=== PATIENT | female | born 1960 | race African-American/Black ===

== ENCOUNTER 2018-12-20 22:28 | Emergency (ER) | payer MEDICAID ==
[~2018-12-20] VITALS: Ht 165.1 cm; Wt 76.2 kg
--- NOTE | 2018-12-20 22:44 | NUR ---
ED Nurse Note: pt walked in c/o left eye redness and "doesn't look good" x 3wks and using saline but no improvement. Pt also c/o back pain. Pt is AO x 4times, VSS, on room air no distress. MOHAN seen Pt at bedside.
[2018-12-20 22:46] VITALS: BP 128/80
[2018-12-20] MEDS ORDERED: CLEAR EYES REDN30 M1 LEFT EYE (22:57)
[2018-12-20] MEDS ORDERED: GENTAK5 ML LEFT EYE (22:57)
[2018-12-20 23:00] VITALS: BP 128/80
--- NOTE | 2018-12-20 23:00 | NUR ---
ER DISCHARGE NOTE: Patient is cleared to be discharged per ERMD, pt is aox4, on room air, with stable vital signs. pt was given dc and prescription instructions, pt was able to verbalize understanding, pt id band removed without complications. pt is able to ambulate with steady gait. pt took all belongings.
--- NOTE | 2018-12-20 23:10 | Emergency Room Report ---
History of Present Illness General Chief Complaint: Eye Problems Source: Patient Present Illness HPI Patient presents with complaints of left eye irritation She feels that in the bus several days ago some dust got into her eye She complained of some itching and irritation to it Denies any visual changes acutely changed Denies any pain to the eye Denies any neck pain or photophobia Denies any sore throat Allergies: Coded Allergies: No Known Allergies (Unverified , 12/20/18) Patient History Past Medical History: see triage record Pertinent Family History: none Now: No : 1 Para: 0 Reviewed Nursing Documentation: PMH: Agreed; PSxH: Agreed Nursing Documentation-PMH Past Medical History: No Stated History Review of Systems All Other Systems: negative except mentioned in HPI Physical Exam Vital Signs Date Time Temp Pulse Resp B/P (MAP) Pulse Ox O2 Delivery O2 Flow Rate FiO2 12/20/18 22:33 97.9 72 18 131/86 (101) 97 Room Air Sp02 EP Interpretation: reviewed, normal General Appearance: well appearing, no apparent distress Head: normocephalic, atraumatic Eyes: left eye other - Mild conjunctival irritation no obvious proptosis; bilateral eye PERRL, bilateral eye EOMI ENT: normal pharynx Neck: supple Respiratory: lungs clear Cardiovascular #1: regular rate, rhythm Gastrointestinal: non tender, soft Genitourinary: no CVA tenderness Musculoskeletal: normal inspection Neurologic: alert, oriented x3, responsive Psychiatric: mood/affect normal Skin: normal color, no rash Lymphatic: no adenopathy Medical Decision Making Diagnostic Impression: Primary Impression: conjunctivitis ER Course Patient shows evidence of likely allergic conjunctivitis to the left eye Given some of the erythema and the duration possible infectious pathology also entertained patient also placed on antibiotic drops and will have close outpatient follow-up Last Vital Signs Date Time Temp Pulse Resp B/P (MAP) Pulse Ox O2 Delivery O2 Flow Rate FiO2 12/20/18 22:46 98.2 87 18 128/80 99 Room Air Status: unchanged Disposition: HOME, SELF-CARE Condition: Stable Scripts Naphazoline Hcl/Glycerin (CLEAR EYES REDNESS RELIEF DROP) 30 Ml Drops 2 DROP LEFT EYE BID for 7 Days, ML Prov: Juancarlos Samuels DO 12/20/18 Gentamicin Sulfate* (GENTAK*) 5 Ml Drops 1 DROP LEFT EYE Q12HR for 7 Days, #1 DROP 0 Refills Prov: Juancarlos Samuels DO 12/20/18 Referrals: [facility]. [facility] Patient Instructions: Bacterial Conjunctivitis, Allergic Conjunctivitis, Easy- to-Read Additional Instructions: Patient is provided with the discharge instructions notified to follow up with primary doctor in the next 2-3 days otherwise return to the er with any worsening symptoms. Please note that this report is being documented using [employer] technology. This can lead to erroneous entry secondary to incorrect interpretation by the dictating instrument. Juancarlos Samuels DO December 20, 2018 23:10
== END 2018-12-20 23:30 | disposition home or self-care (01) ==
LOC: EMR 22:50
DX: H10.9 Unspecified conjunctivitis (principal)
CPT/HCPCS: 99282

== ENCOUNTER 2019-01-01 15:21 | Emergency (ER) | payer MEDICAID ==
[~2019-01-01] VITALS: Ht 165.1 cm; Wt 81.6 kg
[~2019-01-01 15:21] MED LIST: CLEAR EYES REDN30 M1 LEFT EYE; GENTAK5 ML LEFT EYE
[2019-01-01 15:49] VITALS: BP 100/68
--- NOTE | 2019-01-01 15:50 | NUR ---
ED Nurse Note: Patient walked into ED c/o multiple problems, at first she stated that she was having left eye problems, the left eye has a slight redness however no drainage, patient also reports of having knee and toe pain, patient asked for a valium from the MD. patient is alert and oriented x4, ambulatory with a steady gait, vSS
--- NOTE | 2019-01-01 16:00 | Emergency Room Report ---
History of Present Illness General Chief Complaint: Eye Problems Source: Patient Present Illness HPI Patient presents with several different complaints initially complaining of some irritation to her left eye While on the examination bed patient also complains of having a callus in her right toe Reports that she has been off and on with her psychotropic medication does not feel that she necessarily needs them however felt that the Valium could be beneficial for her and requesting a prescription Denies any homicidal or suicidal thoughts denies any chest pain denies any back or flank pain denies any recent trauma Allergies: Coded Allergies: No Known Allergies (Unverified , 12/20/18) Patient History Past Medical History: see triage record Pertinent Family History: none Now: No Reviewed Nursing Documentation: PMH: Agreed; PSxH: Agreed Nursing Documentation-PMH Past Medical History: No History, Except For History Of Psychiatric Problem: Yes - Bipolar, Depression Review of Systems All Other Systems: negative except mentioned in HPI Physical Exam Vital Signs Date Time Temp Pulse Resp B/P (MAP) Pulse Ox O2 Delivery O2 Flow Rate FiO2 01/01/19 15:38 98.1 93 20 100/68 (79) 95 Room Air Sp02 EP Interpretation: reviewed, normal General Appearance: well appearing, no apparent distress Head: normocephalic, atraumatic Eyes: bilateral eye PERRL, bilateral eye EOMI ENT: hearing grossly normal, normal pharynx, TMs + canals normal, uvula midline Neck: full range of motion, supple, no meningismus, no bony tend Respiratory: lungs clear, normal breath sounds, no rhonchi, no respiratory distress, no retraction, no accessory muscle use Cardiovascular #1: normal peripheral pulses, regular rate, rhythm, no edema, no gallop, no JVD, no murmur Gastrointestinal: normal bowel sounds, non tender, soft, no mass, no organomegaly, non-distended, no guarding, no hernia, no pulsatile mass, no rebound Genitourinary: no CVA tenderness Musculoskeletal: normal inspection Neurologic: oriented x3, responsive, light industrial supervisor III-XII nml as tested, motor strength/ tone normal, sensory intact Psychiatric: mood/affect normal Skin: other - Patient's feet were not further examined Lymphatic: normal inspection, no adenopathy Medical Decision Making Diagnostic Impression: Primary Impression: allergic conjuctivitis Additional Impression: Plantar callosity ER Course Patient has benign medical evaluation I feel that patient will benefit from appropriate outpatient psychiatric consultation I did discuss with her that I did not feel initial prescription of Valium was appropriate through the emergency room Patient understands this and was provided with appropriate outpatient referrals Patient does not meet any further criteria for psychiatric evaluation emergently and is stable for close follow-up Last Vital Signs Date Time Temp Pulse Resp B/P (MAP) Pulse Ox O2 Delivery O2 Flow Rate FiO2 01/01/19 15:49 98.1 85 20 100/68 95 Room Air Status: unchanged Disposition: HOME, SELF-CARE Condition: Stable Referrals: [facility]. [facility] Patient Instructions: Bunion (Hallux Valgus), Allergic Conjunctivitis, Easy-to- Read Additional Instructions: Patient is provided with the discharge instructions notified to follow up with primary doctor in the next 2-3 days otherwise return to the er with any worsening symptoms. Please note that this report is being documented using [employer] technology. This can lead to erroneous entry secondary to incorrect interpretation by the dictating instrument. Juancarlos Samuels DO Jan 01, 2019 16:00
--- NOTE | 2019-01-01 16:03 | NUR ---
ER DISCHARGE NOTE: Patient is cleared to be discharged per ERMD, pt is aox4, on room air, with stable vital signs. pt refused to sign discharge paperwork and repeatedly asked for pain medicine, patient was given a list of clinics as well as referrals.
[2019-01-01 16:52] VITALS: BP 100/68
== END 2019-01-01 16:50 | disposition home or self-care (01) ==
LOC: EMR 16:43
DX: H10.12 Acute atopic conjunctivitis, left eye (principal); L84 Corns and callosities; F31.9 Bipolar disorder, unspecified
CPT/HCPCS: 99281

== ENCOUNTER 2019-09-25 23:18 | Emergency (ER) | payer MEDICAID ==
[~2019-09-25] VITALS: Ht 165.1 cm; Wt 90.7 kg
[~2019-09-25 23:18] MED LIST changes: +POLYTRIM OP SOL10 ML OPHTHALM
--- NOTE | 2019-09-25 23:30 | NUR ---
ED Nurse Note: Pt walked into ED from home for c/o toe pain. Pt states she has sharp toe pain in her R 4th toe for the past two weeks. Pt is ambulatory, aaox4.
--- NOTE | 2019-09-25 23:43 | Emergency Room Report ---
History of Present Illness General Chief Complaint: Lower Extremity Injury Source: Patient Present Illness HPI This is a 58-year-old female who presents with complaint of right fourth toe pain. She has fungal infection and a callus in that area. She said is been hurting since she is walking on it. No direct redness. No fever chills but no nausea no vomiting. She said this been ongoing for 2 weeks now. Pain is 7 out of 10. Allergies: Coded Allergies: No Known Allergies (Unverified , 12/20/18) Patient History Past Medical History: see triage record, old chart reviewed Past Surgical History: none Pertinent Family History: none Social History: Denies: smoking Last Menstrual Period: 2015 Now: No : 1 Para: 0 Immunizations: other Reviewed Nursing Documentation: PMH: Agreed; PSxH: Agreed Nursing Documentation-PMH Hx Hypertension: Yes Review of Systems Eye: Denies: eye pain, blurred vision ENT: Denies: ear pain, nose congestion, throat swelling Respiratory: Denies: cough, shortness of breath Cardiovascular: Denies: chest pain, palpitations Gastrointestinal: Denies: abdominal pain, diarrhea, nausea, vomiting Musculoskeletal: Denies: back pain, joint pain Skin: Denies: rash Neurological: Denies: headache, numbness Endocrine: Denies: increased thirst, increased urine Hematologic/Lymphatic: Denies: easy bruising All Other Systems: negative except mentioned in HPI Physical Exam Vital Signs Date Time Temp Pulse Resp B/P (MAP) Pulse Ox O2 Delivery O2 Flow Rate FiO2 09/25/19 23:24 98.1 73 16 149/89 (109) 95 Room Air Vitals with blood pressure elevation Sp02 EP Interpretation: reviewed, normal General Appearance: well appearing, no apparent distress, alert Head: normocephalic, atraumatic Eyes: bilateral eye PERRL, bilateral eye EOMI ENT: hearing grossly normal, normal pharynx Neck: full range of motion, supple, no meningismus Respiratory: chest non-tender, lungs clear, normal breath sounds Cardiovascular #1: regular rate, rhythm, no murmur Gastrointestinal: normal bowel sounds, non tender, no mass, no organomegaly, no bruit, non-distended Musculoskeletal: back normal, normal range of motion, gait/station normal, other - Right fourth toe: She is very thick nail. She also has a callus on the pad of the toe. No evidence of any bacterial infection. No drainage. No abscess. Psychiatric: mood/affect normal Medical Decision Making Diagnostic Impression: Primary Impression: Onychomycosis of toenail Additional Impression: Callus ER Course Patient with onychomycosis of her toenails. She also has a callus that is causing pressure and pain. I shaved liberated off. No redness no evidence of infection. No evidence of abscess. Will discharge home. We will give her a referral to podiatry. Last Vital Signs Date Time Temp Pulse Resp B/P (MAP) Pulse Ox O2 Delivery O2 Flow Rate FiO2 09/25/19 23:24 98.1 73 16 149/89 (109) 95 Room Air Status: improved Disposition: HOME, SELF-CARE Condition: Stable Referrals: [facility],REFERRING (PCP) Additional Instructions: Follow-up with your doctor in 7 days. You may need a referral to see a order packer. Return if symptoms worsen. Philip Underwood MD Sep 25, 2019 23:43
[2019-09-25 23:50] VITALS: BP 149/89
--- NOTE | 2019-09-25 23:50 | NUR ---
ER DISCHARGE NOTE: Patient is cleared to be discharged per ERMD, pt is aox4, on room air, with stable vital signs. pt was given dc and follow up instructions, pt was able to verbalize understanding, pt id band removed. pt is able to ambulate with steady gait. pt took all belongings.
== END 2019-09-25 23:50 | disposition home or self-care (01) ==
LOC: EMR 23:34
DX: B35.1 Tinea unguium (principal); L84 Corns and callosities; I10 Essential (primary) hypertension
CPT/HCPCS: 99282

== ENCOUNTER 2019-10-28 21:11 | Emergency (ER) | payer MEDICAID ==
[~2019-10-28] VITALS: Ht 165.1 cm; Wt 76.2 kg
--- NOTE | 2019-10-28 21:25 | NUR ---
ED Nurse Note: Pt walked into ED for c/o R foot pain that has been intermittent x 4 months. Pt states she has had a bunion on R foot which has previously been treated by podiatry. No signs of redness of open wound on R foot. Pt is aaox4, no signs of acute distress and ambulatory with steady gait.
[2019-10-28] MEDS ORDERED: IBUPROFEN600 M1 ORAL (21:45)
[2019-10-28 21:50] VITALS: BP 141/90
--- NOTE | 2019-10-28 21:50 | NUR ---
ER DISCHARGE NOTE: Patient is cleared to be discharged per ERMD, pt is aox4, on room air, with stable vital signs. pt was given dc and prescription instructions, pt was able to verbalize understanding, pt id band removed. pt is able to ambulate with steady gait. pt took all belongings.
--- NOTE | 2019-10-28 21:52 | Emergency Room Report ---
History of Present Illness General Chief Complaint: Lower Extremity Injury Source: Patient Present Illness HPI Disclaimer: Please note that this report is being documented using [employer] technology. This can lead to erroneous entry secondary to incorrect interpretation by the dictating instrument. HPI: 58-year-old female presents for evaluation of toe pain. She has been complaining of intermittent pain in the fourth toe of the right foot for several months. She was seen in the emergency department recent diagnosed with onychomycosis and a callus which was shaved. She was referred to podiatry but has not yet followed up. She is complaining of persistent intermittent pain particularly with ambulation. No injury reported. She has multiple questions regarding NSAIDs, Tylenol, onychomycosis and appropriate follow-up. No new complaints or injuries today. Allergies: Coded Allergies: No Known Allergies (Unverified , 12/20/18) COVID-19 Screening Contact w/high risk pt: No Recent Travel to affected area: No Experienced COVID-19 symptoms?: No Nursing Documentation-[facility] Past Medical History: No Stated History Hx Hypertension: Yes Review of Systems All Other Systems: negative except mentioned in HPI Physical Exam Vital Signs Date Time Temp Pulse Resp B/P (MAP) Pulse Ox O2 Delivery O2 Flow Rate FiO2 10/28/19 21:18 97.9 83 19 144/89 (107) 95 Room Air General: Awake and alert, no acute distress HEENT: NC/AT. EOMI. Resp: Normal work of breathing Skin: Intact. No abrasions, laceration or rash over the exposed skin. Previous area of callus is clean dry and intact with out signs of infection MSK: Normal tone and bulk. Moving all extremities. No obvious deformity. Thickened toenail on the fourth toe of the right foot. No deformity. No reproducible tenderness. Neuro: Awake and alert. Mentating appropriately Medical Decision Making Diagnostic Impression: Primary Impression: Toe pain Additional Impression: Onychomycosis ER Course 58-year-old female recently seen in the emergency department for calluses and onychomycosis presents with multiple questions regarding her intermittent toe pain of the last several months. No new injuries reported, no change in her condition from previous ER visit. She has not yet followed up with podiatry but has many questions regarding possible osteoarthritis, bunionectomy, appropriate follow-up and appropriate medication regimen. I answered her questions and will start on ibuprofen as needed for control of pain as well as again referred to podiatry regarding her onychomycosis and her calluses. No indication for imaging or labs at this time. Otherwise well-appearing. Will be discharged home to follow-up podiatry. Last Vital Signs Date Time Temp Pulse Resp B/P (MAP) Pulse Ox O2 Delivery O2 Flow Rate FiO2 10/28/19 21:18 97.9 83 19 144/89 (107) 95 Room Air Disposition: HOME, SELF-CARE Condition: Stable Scripts Ibuprofen* (MOTRIN*) 600 Mg Tablet 600 MG ORAL Q6H PRN for For Pain, #30 TAB 0 Refills Prov: Chilo Jon MD 10/28/19 Patient Instructions: Bunion (Hallux Valgus), Bunionectomy Additional Instructions: Continue your Epsom salts soaks and regular foot skin care routines as instructed. Follow-up with your manager crisis as soon as possible to discuss emergency department visit. You may start Motrin for pain and swelling of the toes has needed. Please follow-up with your primary care doctor in the next 1 to 3 days to discuss this emergency department visit and for reevaluation. If you have any new or worsening symptoms please return to the emergency department for reevaluation. Please note that this report is being documented using [employer] technology. This can lead to erroneous entry secondary to incorrect interpretation by the dictating instrument. Chilo Jon MD Oct 28, 2019 21:52
== END 2019-10-28 21:50 | disposition home or self-care (01) ==
LOC: EMR 21:45
DX: M25.571 Pain in right ankle and joints of right foot (principal); B35.1 Tinea unguium; I10 Essential (primary) hypertension
CPT/HCPCS: 99282

== ENCOUNTER 2020-05-20 23:55 | Emergency (ER) | payer MEDICAID ==
[~2020-05-20] VITALS: Ht 165.1 cm; Wt 80.3 kg
[~2020-05-20 23:55] MED LIST changes: +IBUPROFEN600 M1 ORAL; +PERMETHRIN1 GM TP
[2020-05-21 00:03] VITALS: BP 129/83
--- NOTE | 2020-05-21 00:22 | Emergency Room Report ---
History of Present Illness General Chief Complaint: Pain Source: Patient Present Illness HPI Disclaimer: Please note that this report is being documented using [employer] technology. This can lead to erroneous entry secondary to incorrect interpretation by the dictating instrument. HPI: 59-year-old female presents for evaluation of right knee pain. Patient states she tripped on fell forward onto her knee on some uneven sidewalk 3 nights ago. Has been wrapping it though reported pain with ambulation. Pain is centralized over the patella. Denied abrasions or lacerations. There was no head injury, loss of conscious or other injury reported. Otherwise in her usual state of health. Has not taken any medication prior to arrival. PMH: Reviewed PSH: Reviewed Allergies: Denied Social Hx: No drug or alcohol use Allergies: Coded Allergies: No Known Allergies (Unverified , 12/20/18) COVID-19 Screening Contact w/high risk pt: No Recent Travel to affected area: No Experienced COVID-19 symptoms?: No COVID-19 Testing performed ENAMEL SHADER: No Nursing Documentation-PMH Hx Hypertension: Yes Review of Systems All Other Systems: negative except mentioned in HPI Physical Exam Vital Signs Date Time Temp Pulse Resp B/P (MAP) Pulse Ox O2 Delivery O2 Flow Rate FiO2 05/20/20 23:59 97.7 90 16 131/85 (100) 99 Room Air General: Awake and alert, no acute distress HEENT: NC/AT. EOMI. Resp: Normal work of breathing Skin: Intact. No abrasions, laceration or rash over the exposed skin MSK: Normal tone and bulk. Moving all extremities. No obvious deformity. Patella in anatomic position. Nontender. No overlying edema or skin breakdown. Joint is stable. Note tenderness over the proximal tibia or fibula or in the distal femur. No effusion. No instability on varus and valgus testing. No instability on anterior posterior stressing. No popliteal mass felt. Bearing weight and ambulating without difficulty. Neuro: Awake and alert. Mentating appropriately Medical Decision Making Diagnostic Impression: Primary Impression: Knee contusion ER Course Is a 59-year-old female presenting for evaluation of pain over the patella after a fall 2 nights ago. X-ray unremarkable. Patient placed in a supportive wrap and prescribed NSAIDs. Can follow-up on an outpatient basis. Ambulating without difficulty. Instructed to return with new or worsening symptoms. Other X-Ray Diagnostic Results Other X-Ray Diagnostic Results : X-Ray ordered: Knee right # of Views/Limited Vs Complete: Complete Indication: Pain EP Interpretation: Yes Interpretation: no dislocation, no soft tissue swelling, no fractures Impression: No acute disease Electronically Signed by: Electronically signed by Dr. Chilo Jon MD Last Vital Signs Date Time Temp Pulse Resp B/P (MAP) Pulse Ox O2 Delivery O2 Flow Rate FiO2 05/21/20 00:03 97.2 89 16 129/83 99 Room Air Disposition: HOME, SELF-CARE Condition: Stable Scripts Ibuprofen* (MOTRIN*) 600 Mg Tablet 600 MG ORAL Q6H PRN for For Pain, #30 TAB 0 Refills Prov: Chilo Jon MD 05/21/20 Referrals: [facility],REFERRING (PCP) Chilo Jon MD May 21, 2020 00:22
[2020-05-21] MEDS ORDERED: IBUPROFEN600 M1 ORAL (00:23)
[2020-05-21 01:16] VITALS: BP 125/80
--- NOTE | 2020-05-21 10:12 | Diagnostic Imaging Report ---
Indications: Right knee pain, slip and fall Technique: Three views of the knee Comparison: None Findings: No acute fractures. No dislocations. Joint spaces are preserved. No radiopaque foreign body. Normal mineralization. Impression: No acute process
== END 2020-05-21 01:17 | disposition home or self-care (01) ==
LOC: EMR 05-21 00:11
DX: S80.01XA Contusion of right knee, initial encounter (principal); I10 Essential (primary) hypertension; W01.198A Fall on same level from slipping, tripping and stumbling with subsequent striking against other object, initial encounter; Y93.01 Activity, walking, marching and hiking; Y92.480 Sidewalk as the place of occurrence of the external cause
CPT/HCPCS: 73562; Z7502; 99283